=== PATIENT | male | born 1950 | race Caucasian/White ===

== ENCOUNTER 2017-04-25 10:32 | Emergency (ER) | payer OTHER ==
[~2017-04-25] VITALS: Ht 175.3 cm; Wt 75.1 kg
[~2017-04-25 10:32] MED LIST: ATORVASTATIN CA10 MG PO; TRAZODONE HCL50 MG PO
[2017-04-25] MEDS ORDERED: PERCOCET 5/31 TABLET PO (14:09)
[2017-04-25 15:18] VITALS: BP 123/86
== END 2017-04-25 15:19 | disposition home or self-care (01) ==
LOC: EME 10:32
DX: S52.134A Nondisplaced fracture of neck of right radius, initial encounter for closed fracture (principal); S52.135A Nondisplaced fracture of neck of left radius, initial encounter for closed fracture; V10.0XXA Pedal cycle driver injured in collision with pedestrian or animal in nontraffic accident, initial encounter; Y93.55 Activity, bike riding; Y92.482 Bike path as the place of occurrence of the external cause; S40.012A Contusion of left shoulder, initial encounter; S00.83XA Contusion of other part of head, initial encounter
CPT/HCPCS: 70450; 73030; 73080; 73090; 73110; 99281; 99284